=== PATIENT | female | born 1975 | race Caucasian/White ===

== ENCOUNTER 2023-06-09 14:42 | Outpatient (AMB) | payer OTHER, SELFPAY ==
[2023-06-09 15:00] VITALS: BP 116/80; PULSE 90; RESP 18; O2SAT 99; BMI 25.2
--- NOTE | 2023-06-09 15:00 | A.OFFVIS_ITS ---
Intake Vital Signs 3 06/09/23 15:00 Height 5 ft 8 in Weight 166 lb BMI 25.2 BP 116/80 Blood Pressure Location Lt brachial Position Sitting Respiration 18 Pulse 90 Pulse Source Pulse Oximeter Pulse Oximetry (%) 99 Oxygen Delivery Method Room Air Intake Visit Reasons: Chronic Low Back, Knee Pain Allergies No Known Allergies [No Known Allergies*] Allergy (Verified 06/09/23 14:54) HPI HPI Comments 2 History of Present Illness0 Details Gretel is a very pleasant 48-year-old female who presents the office today for evaluation management of her chronic lower back pain Patient reports that she has been suffering with this pain for greater than 1 year. She is currently undergoing physical therapy, she started about 1 month ago. She reports pain improvement for that day but pain soon returns. Unable to take nonsteroidal anti-inflammatory medications due to history of GI bleed. She is currently taking Tylenol with minimal improvement of her pain. Pain midline lower back and lumbar paraspinal muscles, right worse than left without radiation down either lower extremity. She denies red flag symptoms including new loss of bowel, bladder or saddle anesthesia Patient also suffers from right knee pain, chronic. She is wearing a brace to the right knee. Plan for total knee replacement September 2023 through [facility] orth[facility]. Pain today is rated as a 6/10, constant worse in the middle the night into the morning. In terms of muscle damage condition is described as aching, spasming, shooting. Pain is negatively impacting patient's enjoyment of life, general activity, mood, normal work, recreational activities, relationships with people, sleep and walking [facility] Medical History (Updated 06/09/23 @ 15:18 by Winifred Wan APRN, [employer]) Pain, joint, knee, right Pain in right shoulder Generalized pain of knee region Accidental overdose Elevated blood pressure reading in office with diagnosis of hypertension Gastric ulcer with hemorrhage Migraine PTSD (post-traumatic stress disorder) Tobacco abuse Alcohol abuse Bipolar disorder Major depression Obese Premature ovarian failure Hypothyroidism Neoplasm of 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 Answers questions appropriately. Fully engaged in examination. Skin: warm, dry, intact HEENT: Normocephalic. Hearing intact. Cardiac: External chest normal in appearance. Respiratory: No cough, audible wheezing or stridor. Abdomen: without gross distension. MS: No obvious swelling or deformities. Able to stand on bilateral tiptoes and bilateral heels.? Able to transition from sit to stand unassisted. Ambulates with bilaterally normal heel strike and toe off Bilateral lower extremity strength 5/5 SLR negative bilaterally Nontender over bilateral PSIS Tender to palpation midline lumbar vertebrae lumbar paraspinal muscles, right greater than left Lumbar range of motion intact AURELIO negative bilaterally Neurological: Oriented to person, place, time and situation. Thought process intact. No gait abnormalities appreciated. Psychiatric: Appropriate mood and affect. Good judgment and insight. Results Reviewed Results Reviewed: Assessment & Plan Assessment & Plan (1) Lumbar spondylosis: Code(s): M47.816 - Spondylosis without myelopathy or radiculopathy, lumbar region Plan Gretel is a very pleasant 48-year-old female who presented to the office today for evaluation and management of her chronic lower back pain History, physical exam and provocative testing consistent with lumbar spondylosis without radiculopathy Patient has exhausted greater than 6 months of conservative therapy including PT, topical medications, Tylenol. Patient has unable to tolerate nonsteroidal anti-inflammatory medications due to history of GI bleeding. Discussed options for treatment including diagnostic interventional testing, epidural steroid injections, peripheral nerve stimulation with Sprint, RFA and more permanent neuromodulation. Informational pamphlets provided. Will schedule for fluoroscopy guided diagnostic L3-L4 DR L5 medial branch blocks with local anesthetic. All questions and concerns have been answered and patient agrees with the plan. Follow up after injections, sooner if needed. Coding Level of Care Code New Pt Level 4 (83715) Diagnoses Lumbar spondylosis M47.816
== END 2023-06-09 15:37 | disposition home or self-care (01) ==
PROVIDERS: PCP Physician Assistant; Referring Provider Physician Assistant; Visit Provider Registered Nurse Emergency
DX: M47.816 Spondylosis without myelopathy or radiculopathy, lumbar region (principal)
CPT/HCPCS: 99204

== ENCOUNTER → 2023-06-09 14:42 | Outpatient (BNVA) | payer OTHER, SELFPAY | PROVIDERS: Visit Provider Registered Nurse Emergency ==

== ENCOUNTER 2023-08-23 06:10 | Outpatient (REF) | payer OTHER, SELFPAY | END 2023-08-23 06:11 | disposition home or self-care (01) | LOC: CF 06:10 | PROVIDERS: Visit Provider Anesthesiology | DX: Z13.89 Encounter for screening for other disorder (principal) ==